=== PATIENT | female | born 1960 | race Caucasian/White ===

== ENCOUNTER 2025-04-26 07:38 | Emergency (ER) | payer MEDICAID ==
[~2025-04-26] VITALS: Ht 167.6 cm; Wt 109.0 kg
--- NOTE | 2025-04-26 08:19 | ELECTROCARDIOGRAPH REPORT ---
[facility] Test Date: 2025-04-26 Test Time: 07:45:12 Pat Name: DELMA PAVON Department: EMERGENCY ROOM Patient ID: [id number] Room: Gender: F Winch Stripper: : 1960 Requested By: REESE SWANSON Order Number: [id number] Reading MD: Dr. Dedrick Mcrae Measurements Intervals [place] Rate: 61 P: 0 IL: 198 QRS: -7 QRSD: 107 T: 33 QT: 428 QTc: 431 Interpretive Statements Atrial-paced rhythm Electronically Signed On 04-26-2025 18:20:[address] Dedrick Mcrae Please click the below link to view image of tracing.
[2025-04-26 08:29] LABS: MEAN PLATELET VOLUME 8.9 FL (7.4-10.4); RED CELL DISTRIBUTION WIDTH 13.5 % (11.5-14.5)
--- NOTE | 2025-04-26 08:32 | RADIOLOGY REPORT ---
CHEST RADIOGRAPH Indication: Hypotension Technique: Single frontal view of the chest was obtained COMPARISON: None FINDINGS: Lines and Tubes: Left chest pacemaker Lungs: Clear Pleura: No effusion. No pneumothorax. Cardiomediastinal contours: Unremarkable Bones: Unremarkable IMPRESSION: No acute disease.
--- NOTE | 2025-04-26 08:36 | Physician Documentation ---
History of Present Illness ~ Chief Complaint: Diarrhea Stated Complaint: ABD PAIN AND CP Time Seen by MD: 08:01 Source: patient, EMS, EMS notes reviewed Mode of Arrival: EMS Exam Limitations: no limitations HPI Chief Complaint: Bloody diarrhea, abdominal pain Caveat: None Independent Historians: Paramedics History of Present Illness: Patient is a 64-year-old woman with a history of HTN, pacemaker but no history of coronary artery disease presents with bloody diarrhea. Diarrhea started three days ago and then this morning while at the gym developed bloody diarrhea. She has had lower abdominal discomfort, pain described as pressure and cramps. No fever. Stool has been normal color. Patient had bright red blood this morning while at the gym. Then she developed chest pain. Patient states that she always gets chest pain when she is stressed. This has been occurring for a couple of years. Patient denies any nausea or vomiting. Review of systems: All systems were reviewed and are negative except for what is indicated in the history of present illness. Past Medical History: HTN, borderline diabetes, asthma Past Surgical History: Cholecystectomy Social History: Denies tobacco use, denies alcohol use, denies drug use Medications: Reviewed as documented Nursing Notes Allergies: Reviewed as documented in Nursing Notes Medication Reconciliation Allergies: Coded Allergies: hydrocodone (Verified Adverse Reaction, Mild, ANXIETY, PALPATATIONS, 04/26/25) Scheduled Aripiprazole* (Abilify*), 1 TAB PO DAILY Review of Systems All Other Systems at this time: Reviewed and Negative ROS Patient denies any other acute symptoms other than above. All other systems are negative Physical Exam Vital Signs: RN Vital Signs have been reviewed: Yes, Temperature: 98.1, Heart Rate: 62, Respiratory Rate: 18, BP: 140/60, Pulse Oximetry: 98, Weight: 109.000 Pulse Oximetry Reflects: adequate oxygenation Physical Exam General Appearance: No distress HEENT: Normal OP, moist oral mucosa, PERRL, EOMI Neck: supple, normal ROM, trachea midline Pulmonary: No respiratory distress, CTA, BS equal Cardiac: RRR, no murmur, rub or gallop, GI: nondistended, soft, mild lower central abdominal tenderness, normal bowel sounds, no guarding, no rebound Extremities: normal ROM, 1+ pitting edema in the right leg and foot, 2+ pitting edema in the left leg and foot, calves are non-tender Skin: intact, dry, warm, no rashes Neuro: AAOx3, speech is clear, no focal motor weakness Psych: normal affect, good eye contact, no apparent hallucination, normal speech Progress Results/Orders Results/Orders Orders - REESE SWANSON MD Urinalysis, Cult If Indicated (04/26/25 08:04) Chest,Single View (04/26/25 08:12) Nothing By Mouth (04/26/25 Lunch) Monitor (04/26/25 08:04) Saline Lock (04/26/25 08:04) Iv Ppi (04/26/25 08:04) Ct Abdomen Pelvis (04/26/25 08:51) Completed Orders - REESE SWANSON MD Cbc/Diff (04/26/25 08:04) PTT (04/26/25 08:04) Pt Inr (04/26/25 08:04) Type And Screen (04/26/25 08:04) Chest,Single View (04/26/25 08:12) Electrocardiogram (04/26/25 08:04) PBNP (04/26/25 08:19) Hs Troponin I W Calculations (04/26/25 08:19) Hs Troponin I W Calculations (04/26/25 10:19) Hs Troponin I W Calculations (04/26/25 11:19) Ct Abdomen Pelvis (04/26/25 08:51) CMP (04/26/25 08:15) Aripiprazole Tablet (Abilify Tablet) (04/26/25 12:56) Vital Signs 04/26/25 04/26/25 04/26/25 04/26/25 07:40 07:56 08:29 12:24 Temp 98.1 Pulse 65 62 79 Resp 18 18 18 19 B/P (MAP) 125/74 140/60 (86) 155/82 (106) Pulse Ox 98 98 98 Laboratory Tests Test 04/26/25 08:15 04/26/25 10:26 04/26/25 11:42 White Blood Count 9.0 Red Blood Count 4.92 Hemoglobin 14.5 Hematocrit 42.8 Mean Corpuscular Volume 87.1 Mean Corpuscular Hemoglobin 29.5 Mean Corpuscular Hemoglobin Concent 33.9 Red Cell Distribution Width 13.5 Platelet Count 203 Mean Platelet Volume 8.9 Neutrophils (%) (Auto) 71.7 Lymphocytes (%) (Auto) 18.4 L Monocytes (%) (Auto) 7.8 Eosinophils (%) (Auto) 1.5 Basophils (%) (Auto) 0.6 Neutrophils # (Auto) 6.4 Lymphocytes # (Auto) 1.6 Monocytes # (Auto) 0.7 Eosinophils # (Auto) 0.1 Basophils # (Auto) 0.1 CBC Comment Prothrombin Time 10.7 INR International Normalized Ratio 1.0 Activated Partial Thromboplast Time 27 Coagulation Comments Sodium Level 141 Potassium Level 3.5 Chloride Level 103 Carbon Dioxide Level 23.5 L Anion Gap 15 Blood Urea Nitrogen 11 Creatinine 0.92 H Estimated GFR/1.73 m2 62 BUN/Creatinine Ratio 12.0 Glucose Level 131 H Calcium Level 8.6 Total Bilirubin 0.8 Aspartate Amino Transf (AST/SGOT) 25 Alanine Aminotransferase (ALT/SGPT) 31 Alkaline Phosphatase 78 Troponin I High Sensitivity < 4 L 4 4 Troponin I High Sens Percent Delta Troponin I Hi Sens Absolute Change Pro-B-Type Natriuretic Peptide < 30 Total Protein 7.1 Albumin 3.5 Globulin 3.6 Albumin/Globulin Ratio 1.0 L Chemistry Comments Medical Decision Making Findings Differential diagnosis includes but is not limited to: AVM, diverticulosis, diverticulitis, ischemic colitis, ulcerative colitis, infectious colitis EKG independent interpretation: Performed at 7:45 a.m.. Atrial paced rhythm, heart rate 61, normal axis, normal ST segments Chest x-ray, single view, indication: Chest pain Independent interpretation: Lungs are clear, normal cardiac silhouette, normal mediastinum, pacemaker present. No acute cardiopulmonary process Abdomen and pelvis CT scan without IV contrast, indication: Bloody diarrhea Impression: 1. Colonic diverticulosis with no CT evidence for diverticulitis. 2. Nonspecific nondilated fluid-filled small bowel loops. Findings may be seen with ileus or enteritis in the appropriate clinical setting. No small bowel obstruction. 3. Prominence of the left renal pelvis with no hydroureter or obstructing calculus. Probable parapelvic cysts in the left kidney, although poorly delineated from the adjacent renal collecting system. 4. Questionable punctate nonobstructing calculus in the midpole of the right kidney. 5. Hepatic steatosis. 6. Additional findings as described above. Laboratory data independent interpretation: CBC: Unremarkable CMP: 1st troponin: <4 2nd troponin: Pro BNP: <30 Urinalysis: Emergency department course/medical decision-making: Patient presents with diarrhea for three days and associated blood today. Patient's chest pain that she is having isn't thought to be an acute coronary syndrome. Patient states that she gets this chest discomfort any time she is under stress. Patient had a stress test that was unremarkable two years ago. Patient has been afebrile and hemodynamically stable. CT scan of the abdomen and pelvis does not show diverticulitis or other findings concerning for infection or explanation for her GI bleed. Patient isn't thought to have ischemic colitis. Waiting for 2nd troponin. If 2nd troponin is negative the patient is going to be discharged and referred to her computational scientist for follow up in her primary care doctor for colonoscopy. Departure Time of Disposition: 12:48 Disposition: HOME / SELF CARE / HOMELESS Impression: Primary Impression: Lower GI bleed Additional Impression: Chest pain Qualified Codes: R07.9 - Chest pain, unspecified Condition: Stable Discharge Instructions: Gastrointestinal Bleeding, Lower Gastrointestinal Bleeding Additional Instructions: YOU MUST FOLLOW UP WITH YOUR PRIMARY CARE DOCTOR FOR REFERRAL TO YOUR DIE CUTTING MACHINE OPERATOR FOR A REPEAT COLONOSCOPY. RETURN TO THE ER IF YOUR BLEEDING WORSENS. RETURN TO THE ER IF YOU HAVE ANY RECURRENT CHEST PAIN. CHEST PAIN ISN'T THOUGHT TO BE SECONDARY TO A HEART ATTACK. CONTINUE TAKING ALL OF YOUR MEDICATIONS. RECOMMEND HOLDING YOUR ASPIRIN FOR A COUPLE OF DAYS. Prescriptions Aripiprazole* (Abilify*) 5 Mg Tablet 1 TAB PO DAILY for 30 Days, #30 TAB 0 Refills Prov: REESE SWANSON MD 04/26/25 Education Educated: Patient Educated regarding: diagnosis, treatment, need for follow up Signature Scribe Signature: No scribe Attestation: No scribe REESE SWANSON MD Apr 26, 2025 08:36
[2025-04-26 08:41] LABS: APTT 27 SECONDS (22-32); INR 1.0 INR
[2025-04-26 08:57] LABS: PRO BRAIN NATRIURETIC PEPTIDE < 30 PG/ML (0-125)
--- NOTE | 2025-04-26 09:30 | RADIOLOGY REPORT ---
CLINICAL INFORMATION: Abdominal Pain and bloody diarrhea. TECHNIQUE: Axial CT images of the abdomen and pelvis were obtained without IV contrast. Coronal and s agittal reformatted images were obtained, reviewed, and stored. Evaluation of the parenchymal organs is limited without IV contrast. Evaluation of the bowel and mesentery is limited without oral contras t. All CT scans at this medical facility are performed using dose modulation techniques as appropriat e to a performed exam including the following: Automated exposure control was utilized; adjustment of the MA and/or KV according to patient size; and use of iterative reconstruction technique. CTDIvol = 36.24 mGy DLP = 1743.49 mGy-cm COMPARISON: None FINDINGS: Lung bases: Lung bases are clear. Liver: Hepatic steatosis. Biliary: Cholecystectomy. Spleen: Unremarkable. Pancreas: Grossly unremarkable in its noncontrast enhanced appearance. Adrenal glands: Unremarkable. No mass. Kidneys: Prominence of the left renal pelvis with no hydroureter or obstructing calculus. There are s uspected parapelvic cysts of the midpole of the left kidney, although poorly delineated from the lexi cent renal collecting systems. Questionable punctate nonobstructing calculus in the midpole of the ri ght kidney. Aorta/Vascular: Scattered mild atherosclerotic calcification. No abdominal aortic aneurysm. Retroperitoneum: No mass or lymphadenopathy. Bowel/mesentery: Nonspecific nondilated fluid-filled small bowel loops. No small bowel obstruction. A ppendix is visualized and appears unremarkable. Scattered colonic diverticula without adjacent infla mmatory changes to suggest diverticulitis. Pelvic organs: Grossly unremarkable. Bladder: Unremarkable. No mass. Abdominal wall: No mass or hernia. Bones: No acute fracture or suspicious intraosseous lesion. IMPRESSION: 1. Colonic diverticulosis with no CT evidence for diverticulitis. 2. Nonspecific nondilated fluid-filled small bowel loops. Findings may be seen with ileus or enteriti s in the appropriate clinical setting. No small bowel obstruction. 3. Prominence of the left renal pelvis with no hydroureter or obstructing calculus. Probable parapelv ic cysts in the left kidney, although poorly delineated from the adjacent renal collecting system. 4. Questionable punctate nonobstructing calculus in the midpole of the right kidney. 5. Hepatic steatosis. 6. Additional findings as described above.
[2025-04-26 11:39] LABS: CREATININE 0.92 MG/DL (0.40-0.90); TOTAL CARBON DIOXIDE 23.5 MMOL/L (24-32); eCRCL 59 ML/MIN; eGFR 62 ML/MIN
[2025-04-26] MEDS ORDERED: ARIP5TAB12 PO (12:56)
[2025-04-26 13:16] VITALS: BP 149/80; PULSE 69; RESP 18; TEMP 97.3; O2SAT 98
[2025-04-26 14:00] LABS: LEUKOCYTE ESTERASE ,URINE NEGATIVE (Neg); NITRITES, URINE NEGATIVE (Neg); OCCULT BLOOD,URINE TRACE-INTACT (Neg)
[2025-04-26 14:04] LABS: UA COLLECTION TYPE CLN CATCH MIDSTREAM
[2025-04-26 14:07] LABS: SQUAMOUS EPITHELIAL CELL,UR MODERATE /LPF (FEW)
== END 2025-04-26 13:45 | disposition home or self-care (01) ==
LOC: ER 07:39
DX: K92.2 Gastrointestinal hemorrhage, unspecified (principal); R07.9 Chest pain, unspecified; R06.02 Shortness of breath; I10 Essential (primary) hypertension; J45.909 Unspecified asthma, uncomplicated; Z88.5 Allergy status to narcotic agent; Z90.49 Acquired absence of other specified parts of digestive tract; Z95.0 Presence of cardiac pacemaker
CPT/HCPCS: 36415; 71045; 74176; 80053; 81001; 83880; 84484; 85025; 85610; 85730; 86885; 86900; 86901; 93005; 99285